=== PATIENT | female | born 1945 | race Caucasian/White ===

== ENCOUNTER 2021-02-12 04:53 | Emergency (ER) | payer OTHER ==
[~2021-02-12] VITALS: Ht 167.6 cm; Wt 67.1 kg
[2021-02-12 04:53] VITALS: BP 187/89
--- NOTE | 2021-02-12 04:53 | NUR ---
TO BED VIA WHEELCHAIR
--- NOTE | 2021-02-12 04:55 | NUR ---
TO BED 9 WITH C/O GW X 3 DAYS. C/O CHEST DISCOMFORT. IS AWAKE AND ALERT, SKIN WARM AND DRY. RESPIRATIONS ARE REGULAR AND UNLABORED PMH : CHOLESTEROL, HTN, DM NKDA
--- NOTE | 2021-02-12 05:15 | NUR ---
Dr. Salter examining patient.
--- NOTE | 2021-02-12 05:27 | NUR ---
X-Ray at bedside.
--- NOTE | 2021-02-12 05:30 | NUR ---
RSV, COVID, INF A & B SWABS OBTAINED AND SENT TO LAB
[2021-02-12 05:40] LABS: BASOPHILS # (AUTO) 0.1 K/uL (0.00-0.22); BASOPHILS % (AUTO) 0.9 % (0.0-2.0); EOSINOPHILS # (AUTO) 0.3 K/uL (0-0.4); EOSINOPHILS % (AUTO) 3.3 % (0.0-4.0); HEMATOCRIT 45.8 % (36-48); HEMOGLOBIN 15.5 g/dL (12.0-16.0); LYMPHOCYTES # (AUTO) 1.3 K/uL (2.5-16.5); LYMPHOCYTES % (AUTO) 14.7 % (20.5-51.1); MEAN CORPUSCULAR HEMOGLOBIN 31 pg (27-31); MEAN CORPUSCULAR HGB CONC 34 g/dL (33-37); MEAN CORPUSCULAR VOLUME 90.8 fL (80-94); MONOCYTES # (AUTO) 0.6 K/uL (0.8-1.0); MONOCYTES % (AUTO) 6.6 % (1.7-9.3); NEUTROPHILS # (AUTO) 6.8 K/uL (1.8-7.7); NEUTROPHILS % (AUTO) 74.5 % (42.2-75.2); PLATELET COUNT (AUTO) 179 K/uL (140-450); RED BLOOD CELL COUNT(AUTO) 5.05 MIL/uL (4.20-5.40); RED CELL DISTRIBUTION WIDTH 13.6 % (11.6-13.7); WHITE BLOOD COUNT (AUTO) 9.1 K/uL (4.8-10.8)
[2021-02-12 06:08] LABS: ALBUMIN 4.5 g/dL (3.4-5.0); ANION GAP 14.3 (8-16); ASPARTATE AMINOTRANSFERASE 19 U/L (15-37); CHLORIDE 105 mmol/L (98-107); CREATININE 1.2 mg/dL (0.6-1.3); GLUCOSE 138 mg/dL (74-106); POTASSIUM 3.3 mmol/L (3.5-5.1); RSV NEGATIVE (NEGATIVE); SODIUM SERUM 143 mmol/L (136-145); TOTAL BILIRUBIN 0.7 mg/dL (0.0-1.0); UREA NITROGEN, BLOOD 14 mg/dL (7-18)
[2021-02-12] MEDS ORDERED: POTASSIUM CHLORIDE 10 MEQ TABER PO ONE (06:25)
[2021-02-12 06:55] LABS: FREE T4 (FREE THYROXINE) 1.27 ng/dL (0.76-1.46); MAGNESIUM 2.1 mg/dL (1.8-2.4); PHOSPHORUS 2.7 mg/dL (2.5-4.9); THYROID STIMULATING HORMONE 1.02 uIU/mL (0.34-3.74)
--- NOTE | 2021-02-12 07:11 | NUR ---
RECEIVED REPORT FROM ISA JIM. TRANSFER OF CARE AT THIS TIME.
--- NOTE | 2021-02-12 07:22 | NUR ---
PATIENT AMBULATED TO RESTROOM FOR COLLECTION OF URINE
--- NOTE | 2021-02-12 07:28 | NUR ---
PT AMBULATED BACK TO BED 9 WITH ASSISTANCE. PT A/O X4 GCS 14 WITH EVEN AND UNLABORED RESPIRATIONS. PT STATES SHE IS FEELING A LITTLE BETTER. PT LAYING IN BED WITH BED IN LOWEST POSITION, BRAKES LOCKED X2 SIDERAILS UP FOR SAFETY. WILL CONTINUE TO MONITOR.
[2021-02-12 07:47] LABS: APPEARANCE,URINE CLEAR (CLEAR); BILIRUBIN,URINE NEGATIVE (NEGATIVE); BLOOD, URINE NEGATIVE (NEGATIVE); COLOR,URINE YELLOW (YELLOW); LEUKOCYTE ESTERASE ,URINE 1+ (NEGATIVE); NITRITE, URINE NEGATIVE (NEGATIVE); PH,URINE 7.5 (5.0-9.0); UGLUCOSE NEGATIVE (NEGATIVE)
[2021-02-12 07:51] LABS: RBC,URINE 0-5 /HPF (0-5); WBC,URINE 0-5 /HPF (0-5)
--- NOTE | 2021-02-12 08:03 | NUR ---
DR LAUGHLIN AT BEDSIDE RE-EVALUATING PATIENT
[2021-02-12] MEDS ORDERED: NITR100C7 PO (08:21)
[2021-02-12] MEDS ORDERED: ROB PO (08:21)
[2021-02-12 08:37] VITALS: BP 152/84
--- NOTE | 2021-02-12 08:40 | NUR ---
Patient discharged with v/s stable. Written and verbal after care instructions ABOUT UTI AND URI given and explained. Patient alert, oriented and verbalized understanding of instructions. Wheel Chair Assisted with to CAR . All questions addressed prior to discharge. ID band removed. Patient advised to follow up with PMD. Rx of MACROBID 100MG AND GUAIFENESIN given. Patient educated on indication of medication including possible reaction and side effects. Opportunity to ask questions provided and answered.
== END 2021-02-12 08:40 | disposition home or self-care (01) ==
LOC: MED 04:53
DX: R07.9 Chest pain, unspecified (principal); R05 Cough; R53.1 Weakness; E11.9 Type 2 diabetes mellitus without complications; E78.00 Pure hypercholesterolemia, unspecified; I10 Essential (primary) hypertension; Z20.822 Contact with and (suspected) exposure to COVID-19
CPT/HCPCS: 36415; 71045; 80053; 81001; 83690; 83735; 83880; 84100; 84439; 84443; 84484; 85025; 87086; 87420; 87804; 93005; 99285

== ENCOUNTER 2021-03-18 14:03 | Emergency (ER) | payer OTHER ==
[~2021-03-18] VITALS: Ht 157.5 cm; Wt 56.7 kg
[~2021-03-18 14:03] MED LIST: NITR100C7 PO; ROB PO
[2021-03-18 14:24] VITALS: BP 156/86
--- NOTE | 2021-03-18 14:55 | NUR ---
75/F bib self to ED with c/o dysuria and increased urinary frequency for 3 weeks. Patient states she was seen here for same symptoms and given Rx of Macrobid and Pyridium but has not experienced relief of symptoms. Patient also c/o 10/10 dull lower abdominal pain radiating to her lower back, patient states she took medication for pain with no relief. Patient denies fever, chills, nausea or vomiting. Pt denies chest pain or SOB.
[2021-03-18] MEDS ORDERED: KETOROLAC 60 MG/2 ML VIAL IM ONE (15:00)
[2021-03-18] MEDS ORDERED: CIPR500T4 PO (15:01)
[2021-03-18] MEDS ORDERED: IBUP-2213 PO (15:01)
[2021-03-18 15:19] VITALS: BP 156/86
--- NOTE | 2021-03-18 15:19 | NUR ---
Patient discharged with v/s stable. Written and verbal after care instructions given and explained. Patient alert, oriented and verbalized understanding of instructions. Ambulatory with steady gait. All questions addressed prior to discharge. ID band removed. Patient advised to follow up with PMD. Rx of ciprofloxacin and ibuprofen given. Patient educated on indication of medication including possible reaction and side effects. Opportunity to ask questions provided and answered.
== END 2021-03-18 15:19 | disposition home or self-care (01) ==
LOC: MED 14:03
DX: N39.0 Urinary tract infection, site not specified (principal); E11.9 Type 2 diabetes mellitus without complications; I10 Essential (primary) hypertension; Z79.899 Other long term (current) drug therapy; Z98.890 Other specified postprocedural states
CPT/HCPCS: 81002; 87086; 96372; 99283; J1885

== ENCOUNTER 2021-07-11 08:59 | Inpatient (IN) | payer OTHER, SELFPAY ==
[~2021-07-11] VITALS: Ht 167.6 cm; Wt 68.0 kg
[~2021-07-11 08:59] MED LIST changes: +CIPR500T4 PO; +IBUP-2213 PO
[2021-07-11 09:12] VITALS: BP 118/88
--- NOTE | 2021-07-11 09:20 | NUR ---
PATIENT AMBULATED TO BED 4
[2021-07-11] MEDS ORDERED: ACETAMINOPHEN EXTRA STRENGTH 500 MG TAB PO ONE (09:55)
[2021-07-11 10:12] LABS: BASOPHILS % (AUTO) 0.6 % (0.0-2.0); EOSINOPHILS # (AUTO) 0.1 K/uL (0-0.4); EOSINOPHILS % (AUTO) 1.2 % (0.0-4.0); HEMATOCRIT 43.6 % (36-48); HEMOGLOBIN 14.8 g/dL (12.0-16.0); LYMPHOCYTES # (AUTO) 0.9 K/uL (2.5-16.5); LYMPHOCYTES % (AUTO) 14.1 % (20.5-51.1); MEAN CORPUSCULAR HEMOGLOBIN 30 pg (27-31); MEAN CORPUSCULAR HGB CONC 34 g/dL (33-37); MEAN CORPUSCULAR VOLUME 88.4 fL (80-94); MONOCYTES # (AUTO) 0.7 K/uL (0.8-1.0); MONOCYTES % (AUTO) 10.2 % (1.7-9.3); NEUTROPHILS # (AUTO) 4.8 K/uL (1.8-7.7); NEUTROPHILS % (AUTO) 73.9 % (42.2-75.2); PLATELET COUNT (AUTO) 184 K/uL (140-450); RED BLOOD CELL COUNT(AUTO) 4.93 MIL/uL (4.20-5.40); RED CELL DISTRIBUTION WIDTH 13.3 % (11.6-13.7); WHITE BLOOD COUNT (AUTO) 6.5 K/uL (4.8-10.8)
[2021-07-11 10:27] LABS: PROTHROMBIN TIME 10.4 secs (10.8-13.4)
[2021-07-11 10:36] LABS: ALBUMIN 3.8 g/dL (3.4-5.0); ANION GAP 12.1 (8-16); ASPARTATE AMINOTRANSFERASE 16 U/L (15-37); CARBON DIOXIDE 27.8 mmol/L (21-32); CHLORIDE 102 mmol/L (98-107); CREATININE 1.1 mg/dL (0.6-1.3); GLUCOSE 129 mg/dL (74-106); POTASSIUM 3.9 mmol/L (3.5-5.1); SODIUM SERUM 138 mmol/L (136-145); TOTAL BILIRUBIN 0.4 mg/dL (0.0-1.0); UREA NITROGEN, BLOOD 13 mg/dL (7-18)
--- NOTE | 2021-07-11 10:40 | NUR ---
75/F PRESENTS TO ED WITH C/O LEFT SIDED CHEST PAIN AND SOB X5 DAYS. PATIENT STATES SHE FEELS EASILY FATIGUED WHEN TAKING A FEW STEPS AND CANNOT CATCH HER BREATH. PATIENT STATES PAIN HAS BEEN RADIATING TO HER RIGHT SHOULDER AND SHE HAS BEEN EXPERIENCING A "BURNING HEADACHE." PATIENT DENIES COUGH, FEVER, CHILLS, N/V/D OR DIZZINESS.
--- NOTE | 2021-07-11 12:07 | NUR ---
PATIENT TAKEN TO CT BY W/C
[2021-07-11] MEDS ORDERED: ASPIRIN 325 MG TAB PO ONE (12:40)
--- NOTE | 2021-07-11 14:00 | NUR ---
PATIENT PROVIDED WITH SANDWICH AND JUICE TO DRINK.
--- NOTE | 2021-07-11 15:35 | NUR ---
PATIENT RESTING IN BED, ON BEDSIDE CARDIOLOGY PHYSICIAN ASSISTANT VSS. ALL NEEDS MET AT THIS TIME.
--- NOTE | 2021-07-11 16:48 | NUR ---
Patient will be admitted to care of DR. BETTENCOURT. Admited to TELE. Will go to room 122B. Belongings list completed. Report to [place].
--- NOTE | 2021-07-11 17:40 | NUR ---
RECIEVE REPORT FROM CHARGE NURSE ANITA , PATIENT IS IN BED WAS ADMITTED DUE TO CHEST PAIN ON THE LEFT SIDE, DENIES PAIN AT THIS MOMENT, PATIENT HAS A HISTORY OF HTN, HYPERLIPIDEMIA AND PRE DIABETIC, PATIENT IS AX4 ON ROOM AIR, BREATHING EVEN UNLABORED, CALLS LIGHT WITHIN REACH, ALL SAFETY MEASURES ON PLACE Addendum: 07/11/21 at 1903 by Farooq Henriquez RN RN PATIENT BLOOD PRESSURE 175/[address] BETTENCOURT Addendum: 07/11/21 at 2008 by Farooq Henriquez RN RN PATIENT GOT ZESTRIL 10 MG, ENDORSED TO FUELER NURSE TO MONITOR BLOOD PRESSURE AND GIVE IV HYDRALAZINE S MD SG LOVE
[2021-07-11 18:30] VITALS: BP 175/89
[2021-07-11] MEDS ORDERED: MAG SULF 2000 MG/WATER PREMIX 50 ML IV PRN (18:55)
[2021-07-11] MEDS: lisinopriL 5 MG TAB PO SCH (18:55)
[2021-07-11] MEDS ORDERED: NITROGLYCERIN 0.4 MG TAB SL PRN (18:55)
[2021-07-11] MEDS ORDERED: POTASSIUM CHLORIDE 10 MEQ TABER PO PRN (18:55)
[2021-07-11 20:00] VITALS: BP 175/89
--- NOTE | 2021-07-11 20:09 | NUR ---
FULL BEDSIDE REPORT GIVEN TO DOMESTIC VIOLENCE COUNSELOR NURSE
[2021-07-11] MEDS: ATORVASTATIN 20 MG TAB PO SCH (21:00)
[2021-07-11] MEDS: METOPROLOL 25 MG TAB PO SCH (21:00)
[2021-07-12] VITALS: BP 169/87
--- NOTE | 2021-07-12 01:53 | NUR ---
PATIENT ALERT TAMAZIGHT SPEAKING LUNGS CLEAR ON MONITOR SINUS B/P HIGH GIVEN LOPRESSOR 25 MG PO ON ROOM AIR SINUS HAS RIGHT A.C 20 GA HL. NO SIGN OF ACUTE DISTRESS.
[2021-07-12 04:00] VITALS: BP 169/88
[2021-07-12 06:09] LABS: ANION GAP 10.9 (8-16); CHLORIDE 104 mmol/L (98-107); GLUCOSE 110 mg/dL (74-106); POTASSIUM 3.9 mmol/L (3.5-5.1); SODIUM SERUM 139 mmol/L (136-145); UREA NITROGEN, BLOOD 10 mg/dL (7-18)
[2021-07-12 06:23] LABS: MAGNESIUM 2.2 mg/dL (1.8-2.4); PHOSPHORUS 3.1 mg/dL (2.5-4.9)
[2021-07-12 06:27] LABS: BASOPHILS # (AUTO) 0.1 K/uL (0.00-0.22); BASOPHILS % (AUTO) 0.9 % (0.0-2.0); EOSINOPHILS # (AUTO) 0.2 K/uL (0-0.4); EOSINOPHILS % (AUTO) 3.5 % (0.0-4.0); HEMATOCRIT 42.8 % (36-48); HEMOGLOBIN 14.7 g/dL (12.0-16.0); LYMPHOCYTES # (AUTO) 2.2 K/uL (2.5-16.5); LYMPHOCYTES % (AUTO) 37.9 % (20.5-51.1); MEAN CORPUSCULAR HEMOGLOBIN 30 pg (27-31); MEAN CORPUSCULAR HGB CONC 34 g/dL (33-37); MEAN CORPUSCULAR VOLUME 88.4 fL (80-94); MONOCYTES # (AUTO) 0.5 K/uL (0.8-1.0); MONOCYTES % (AUTO) 8.3 % (1.7-9.3); NEUTROPHILS # (AUTO) 2.8 K/uL (1.8-7.7); NEUTROPHILS % (AUTO) 49.4 % (42.2-75.2); PLATELET COUNT (AUTO) 193 K/uL (140-450); RED BLOOD CELL COUNT(AUTO) 4.84 MIL/uL (4.20-5.40); RED CELL DISTRIBUTION WIDTH 13.1 % (11.6-13.7); WHITE BLOOD COUNT (AUTO) 5.7 K/uL (4.8-10.8)
[2021-07-12 08:00] VITALS: BP 182/83
--- NOTE | 2021-07-12 08:00 | NUR ---
RECEIVED REPORT FROM COMPLIANCE FIELD TECHNICIAN FOR CONTINUITY OF CARE. PATEINT ALERT AWAKE ORIENTED X4, POLISH SPEAKING, GRAND DAUGHTER AT BEDSIDE TO TRANSLATE. WITH HEPLOCK ON THE RIGHT AC DRY AND INTACT. ON MONITOR SHOWS SR. DENIES CHEST PAIN. NEEDS ATTENDED. WILL CONTINUE TO MONITOR.
[2021-07-12] MEDS: ASPIRIN 81 MG TAB.CHEW PO SCH (08:31)
[2021-07-12] MEDS: lisinopriL 5 MG TAB PO SCH (08:31)
[2021-07-12] MEDS: METOPROLOL 25 MG TAB PO SCH ×2 (08:31→20:43)
--- NOTE | 2021-07-12 09:00 | NUR ---
DUE MEDICATION GIVEN AND TOLERATED WELL.
--- NOTE | 2021-07-12 09:04 | NUR ---
PATIENT HAS BEEN SCREENED AND CATEGORIZED MODERATE NUTRITION RISK. PATIENT WILL BE SEEN WITHIN 3-5 DAYS OF ADMISSION. 07/12/21 07/16/[address]
[2021-07-12] MEDS ORDERED: LORazepam 2 MG/ML VIAL IM/IVP PRN (09:05)
[2021-07-12] MEDS ORDERED: ACETAMINOPHEN 325 MG TAB PO PRN (09:05)
[2021-07-12] MEDS ORDERED: POTASSIUM CHLORIDE 10 MEQ TABER PO PRN (09:05)
[2021-07-12] MEDS ORDERED: ZOLPIDEM 5 MG TAB PO PRN (09:05)
[2021-07-12] MEDS ORDERED: MAG SULF 2000 MG/WATER PREMIX 50 ML IV PRN (09:05)
[2021-07-12] MEDS ORDERED: ONDANSETRON 4 MG/2 ML VIAL IM/IVP PRN (09:05)
[2021-07-12] MEDS ORDERED: DOCUSATE SODIUM 100 MG GELCAP PO PRN (09:05)
[2021-07-12] MEDS: NACL 0.9% 1,000 ML IV SCH (10:28)
--- NOTE | 2021-07-12 10:30 | NUR ---
SEEN BY DR. DE LEON WITH ORDER FOR ECHO. STARTED ON IVF NS @ 60 ML/ HR AND INFUSING WELL. WILL CONTINUE TO MONITOR.
--- NOTE | 2021-07-12 11:00 | NUR ---
ECHO IN PROGRESS, PATIENT IN STABLE CONDITION.
[2021-07-12 11:01] LABS: PROTHROMBIN TIME 10.2 secs (10.8-13.4)
[2021-07-12 14:00] VITALS: BP 155/66
[2021-07-12 16:00] VITALS: BP 157/73
[2021-07-12] MEDS ORDERED: REGADENOSON 0.4 MG/5 ML SYR IV SCH (16:05)
--- NOTE | 2021-07-12 17:00 | NUR ---
PATIENT RESTING IN BED, DENIES CHEST PAIN.
--- NOTE | 2021-07-12 19:25 | NUR ---
REPORT GIVEN TO BANQUET WAITER/WAITRESS FOR CONTINUITY OF CARE. PATIENT IN STABLE CONDITION.
[2021-07-12 20:00] VITALS: BP 137/61
--- NOTE | 2021-07-12 20:00 | NUR ---
RECEIVED BEDSIDE REPORT EARLIER FROM DAY RN FOR CONTINUITY OF CARE. PATIENT A/A/OX3, HAITIAN SPEAKING BUT ABLE TO VERBALIZED NEEDS WITH SIMPLE TURKMEN. PATIENT LAYING IN BED WATCHING TV. PATIENT NOT IN ANY DISTRESS AND NO COMPLAIN AT THIS TIME. PATIENT DENIES ANY CHEST PAIN, DIZZINESS AND ANY PAIN. IVF INFUSING ORDERED ON THE RT AC. INSTRUCTED PATIENT THAT SHE CANNOT EAT OR DRINK ANYTHING AFTER MIDNIGHT FOR THE STRESS TEST TOMORROW.FALL PRECAUTION IMPLEMENTED. INSTRUCTED THE PATIENT NOT TO GET OOB WITHOUT ASSISTANCE. PT VERBALIZED UNDERSTANDING WITH THE POC.CALL LIGHT WITHIN REACH. WILL CONTINUE POC AND MONITORING.
[2021-07-12] MEDS: ATORVASTATIN 20 MG TAB PO SCH (20:43)
--- NOTE | 2021-07-12 22:00 | NUR ---
ALL DUE MEDS GIVEN ORDERED. NO ADVERSE DRUG REACTION NOTED. WILL CONTINUE TO OBSERVE PT.
[2021-07-13] VITALS (7 sets, daily range): BP systolic 132–182; BP diastolic 70–89
--- NOTE | 2021-07-13 | NUR ---
PT BP HIGH 178/89, HR-70, AFEBRILE, SATING 97% ON RA. PT WAS GIVEN LOPRESSOR EARLIER. WILL CONTINUE TO MONITOR THE PT BP AND IF STILL REMAINS HIGH WE WILL NOTIFY MD. ARCHER ON TELE MONITOR, HR-74. NO COMPLAIN OF PAIN. CALL LIGHT WITHIN REACH. WILL CONTINUE POC AND MONITORING.
[2021-07-13] MEDS: NACL 0.9% 1,000 ML IV SCH (01:45)
--- NOTE | 2021-07-13 01:51 | NUR ---
PATIENT IV ON THE RIGHT AC GOT PULLED OUT BY THE PATIENT ACCIDENTALLY. PLACED A NEW IV ON THE LEFT HAND GAUGE 22.
--- NOTE | 2021-07-13 03:30 | NUR ---
PATIENT ASLEEP AT THIS TIME. VISIBLE CHEST RISE AND FALL NOTED. NOT IN ANY DISTRESS. WILL CONTINUE TO OBSERVE.
--- NOTE | 2021-07-13 05:30 | NUR ---
MESSAGED DR MAYA REGARDING THE PATIENT BP HIGH 182/81, HR-56. MD ALSO MADE AWARE THAT THE PT IS GOING FOR STRESS TEST TODAY. AWAITING FOR MD TO REPLY OR CALL BACK.
--- NOTE | 2021-07-13 06:15 | NUR ---
NO ACUTE EVENT THROUGHOUT THE NIGHT. PATIENT STABLE. NOT IN ANY DISTRESS AND NO COMPLAIN AT THIS TIME. ALL NEEDS ATTENDED. WILL ENDORSE THE PATIENT TO THE ONCOMING RN FOR CONTINUITY OF CARE.
[2021-07-13 06:22] LABS: BASOPHILS # (AUTO) 0.1 K/uL (0.00-0.22); BASOPHILS % (AUTO) 0.8 % (0.0-2.0); EOSINOPHILS # (AUTO) 0.2 K/uL (0-0.4); EOSINOPHILS % (AUTO) 3.4 % (0.0-4.0); HEMATOCRIT 41.1 % (36-48); HEMOGLOBIN 13.9 g/dL (12.0-16.0); LYMPHOCYTES # (AUTO) 1.8 K/uL (2.5-16.5); LYMPHOCYTES % (AUTO) 28.1 % (20.5-51.1); MEAN CORPUSCULAR HEMOGLOBIN 30 pg (27-31); MEAN CORPUSCULAR HGB CONC 34 g/dL (33-37); MEAN CORPUSCULAR VOLUME 88.5 fL (80-94); MONOCYTES # (AUTO) 0.4 K/uL (0.8-1.0); MONOCYTES % (AUTO) 6.4 % (1.7-9.3); NEUTROPHILS % (AUTO) 61.3 % (42.2-75.2); PLATELET COUNT (AUTO) 195 K/uL (140-450); RED BLOOD CELL COUNT(AUTO) 4.64 MIL/uL (4.20-5.40); WHITE BLOOD COUNT (AUTO) 6.5 K/uL (4.8-10.8)
[2021-07-13 06:33] LABS: CHLORIDE 106 mmol/L (98-107); CREATININE 0.9 mg/dL (0.6-1.3); GLUCOSE 121 mg/dL (74-106); SODIUM SERUM 141 mmol/L (136-145); UREA NITROGEN, BLOOD 10 mg/dL (7-18)
[2021-07-13 06:36] LABS: CHOL/HDL RATIO 3.2 (1-4.5)
[2021-07-13 06:43] LABS: MAGNESIUM 2.2 mg/dL (1.8-2.4); PHOSPHORUS 2.9 mg/dL (2.5-4.9)
--- NOTE | 2021-07-13 07:46 | NUR ---
ENDORSED PATIENT TO DAY RN FOR CONTINUITY OF CARE. PATIENT STABLE. SIGNING OFF.
--- NOTE | 2021-07-13 07:50 | NUR ---
RECEIVED BEDSIDE REPORT FROM CHILI MAKER NURSE FOR CONTINUITY OF CARE. PT IS AT THE STRESS TEST AT THIS MOMENT. WILL WAIT FOR PT TO RETURN BACK TO ROOM.
--- NOTE | 2021-07-13 09:30 | NUR ---
PT ARRIVED BACK FROM [facility]. WILL WAIT FOR RESULTS. NO DISTRESS NOTED. PT DENIES PAIN. BREATHING IS UNLABORED ON RA. IV FLUIDS WERE CONNECTED TO IV. PT IS STABLE.
[2021-07-13] MEDS: ASPIRIN 81 MG TAB.CHEW PO SCH (09:48)
[2021-07-13] MEDS: lisinopriL 5 MG TAB PO SCH (09:49)
[2021-07-13] MEDS: METOPROLOL 25 MG TAB PO SCH (09:49)
--- NOTE | 2021-07-13 10:57 | NUR ---
MESSAGED DR. MAYA TO ASK IF WE CAN CHANGE THE DIET FROM NPO. SHE ORDERED CARDIAC DIET FOR LUNCH.
[2021-07-13 11:38] LABS: APPEARANCE,URINE CLEAR (CLEAR); BILIRUBIN,URINE NEGATIVE (NEGATIVE); BLOOD, URINE NEGATIVE (NEGATIVE); COLOR,URINE YELLOW (YELLOW); NITRITE, URINE NEGATIVE (NEGATIVE); PH,URINE 7.5 (5.0-9.0); UGLUCOSE NEGATIVE (NEGATIVE)
--- NOTE | 2021-07-13 11:40 | NUR ---
PT IS IN THE RESTROOM TAKING BED BATH. LINENS WERE CHANGED. PT AMBULATED INDEPENDENTLY WITH STEADY GAIT. PT IS STABLE AT THIS TIME.
[2021-07-13 12:45] LABS: LEUKOCYTE ESTERASE ,URINE 1+ (NEGATIVE); RBC,URINE 0-5 /HPF (0-5); WBC,URINE 0-5 /HPF (0-5)
[2021-07-13 13:03] LABS: BARBITURATE, URINE NEGATIVE ng/ml (NEG <=200); BENZODIAZEPINE, URINE NEGATIVE ng/mL (NEG <=200); CANNABINOID, URINE NEGATIVE ng/mL (NEG <=50); COCAINE, URINE NEGATIVE ng/mL (NEG <=300); OPIATE, URINE NEGATIVE ng/mL (NEG <=2000); PHENCYCLIDINE SCREEN,URINE NEGATIVE ng/mL (NEG <=25)
--- NOTE | 2021-07-13 13:14 | NUR ---
DC PLANNING: THE PATIENT ADMITTED FROM HOME WITH C/O LEFT SIDED CHEST PAIN AND EXERTIONAL DYSPNEA. H/O HTN, HYPERLIPIDEMIA AND PREDIABETES. BNP AND TROPONINS WNL'S, EKG WITHOUT ST WAVE CHANGES OR STEMI. CARDIOLOGY CONSULT ORDERED, ECHO DONE, NORMAL LVEF OF 60-65%, NST ORDERED AND DONE TODAY, LVEF 76%, NO ISCHEMI OR PRIOR MS NOTED ON STUDY, ON BETA BLOCKERS AND ANNA MARIE INHIBITORS, DC PLAN IS TO RETURN HOME WITH FAMILY WHEN CLINICALLY STABLE. Addendum: 07/14/21 at 0843 by Shanita Thompson CM DC PLANNING: SEAMUS SPOKE WITH THE PATIENT AND HER GRANDDAUGHTER AT BEDSIDE YESTERDAY TO DISCUSS DC PLANNING. SEAMUS CONFIRMED THE PATIENTS ADDRESS AND PHONE NUMBER, SHE LIVES IN A SECOND FLOOR APARTMENT WITH HER GRANDDAUGHTER AND 3 GRANDCHILDREN. SHE IS VERY ACTIVE AND WALKS EVERYDAY, IS INDEPENDENT IN ALL ACTIVITIES. NO DME OF HOME HEALTH, SHE SEES HER PCP GYPSY PERKINS REGULARLY FOR HTN AND DME OVERSIGHT AND MANAGEMENT. NO DC NEEDS, PATIENT DC'D TO HOME WITH FAMILY.
--- NOTE | 2021-07-13 13:30 | NUR ---
ROUNDED ON PT. SHE IS STABLE. NO DISTRESS NOTED. PT DENIES PAIN. SITTING UP IN BED WATCHING TV. IV FLUIDS ARE INFUSING PER ORDER. WILL CONTINUE TO MONITOR.
--- NOTE | 2021-07-13 16:10 | NUR ---
COMMAND AND CONTROL, FIDELIA, AT BEDSIDE SPEAKING WITH PT AND GRANDDAUGHTER. ALL QUESTIONS ANSWERED. PT IS STABLE AND SPEAKING APPROPRIATELY.
--- NOTE | 2021-07-13 16:30 | NUR ---
MESSAGED DR. MAYA TO INFORM HER THAT THE BP IS 162/76 AND THE HR IS 81. ASKED FOR MEDICATION TO LOWER BP. WILL WAIT FOR RESPONSE.
[2021-07-13] MEDS ORDERED: LISI5TAB24 PO (16:44)
[2021-07-13] MEDS ORDERED: ATOR20TA40 PO (16:44)
[2021-07-13] MEDS ORDERED: METO25TA PO (16:44)
[2021-07-13] MEDS ORDERED: NIFE-184 PO (16:44)
[2021-07-13] MEDS ORDERED: ASPI81CT95 PO (16:44)
[2021-07-13] MEDS ORDERED: METOPROLOL 5 MG/5 ML VIAL IVP SCH (16:50)
--- NOTE | 2021-07-13 18:00 | NUR ---
PT IS DISCHARGED FROM HOSPITAL. CHANGED INTO OWN CLOTHING. IV WAS REMOVED AND BLEEDING CONTROLLED. ID BAND WAS REMOVED. DISCHARGE INSTRUCTIONS WERE PROVIDED TO GRANDDAUGHTER AT BEDSIDE AND PT. PT VERBALIZED UNDERSTANDING. PAPERWORK WAS SIGNED. PT IS STABLE AT THIS TIME. VS ARE STABLE.
== END 2021-07-13 18:05 | disposition home or self-care (01) | DRG 311 ==
LOC: MED 08:59 → MTU 15:07
DX: I20.8 Other forms of angina pectoris (principal); I10 Essential (primary) hypertension; E78.5 Hyperlipidemia, unspecified; R73.03 Prediabetes; K21.9 Gastro-esophageal reflux disease without esophagitis; Z20.822 Contact with and (suspected) exposure to COVID-19; Z79.1 Long term (current) use of non-steroidal anti-inflammatories (NSAID); Z79.899 Other long term (current) drug therapy
CPT/HCPCS: 36415; 70450; 71045; 80048; 80053; 80305; 81001; 83036; 83690; 83735; 83880; 84100; 84134; 84443; 84484; 85025; 85610; 85730; 87086; 87804; 93005; 93017; 99285; A9500; A9502; J1644; J2405; J2785; J3490; Q0092

== ENCOUNTER 2021-12-28 16:53 | Emergency (ER) | payer OTHER ==
[~2021-12-28] VITALS: Ht 167.6 cm; Wt 66.7 kg
[~2021-12-28 16:53] MED LIST changes: +ASPI81CT95 PO; +ATOR20TA40 PO; -CIPR500T4 PO; -IBUP-2213 PO; +LISI5TAB24 PO; +METO25TA PO; +NIFE-184 PO; -NITR100C7 PO; -ROB PO
[2021-12-28 16:59] VITALS: BP 176/91
--- NOTE | 2021-12-28 17:02 | NUR ---
76 Y/O FEMALE BIB SELF C/O CONSTIPATION LAST BM 3 DAYS AGO. STATED THAT SHE TOOK BISACODYL SUPPOSITORY AT 1600H, NO BOWEL MOVEMENT NOTED, NOW WITH 8/10 PAIN IN THE RECTAL AREA. STATED THAT THEY FEEL A "BALL" IN THE AREA. DENIES ANY NAUSEA/VOMITING NKA PMH: HTN
--- NOTE | 2021-12-28 18:15 | NUR ---
DR PACE AT BEDSIDE FOR FURTHER EVAL
--- NOTE | 2021-12-28 18:25 | NUR ---
PT AMBULATED TO BATHROOM WITH STEADY GAIT
--- NOTE | 2021-12-28 18:43 | NUR ---
Rectal exam performed per DR PACE with MARIBETH MOSS FEMALE HORTICULTURE SUPERVISOR at bedside during procedure. Patient tolerated well.
--- NOTE | 2021-12-28 19:00 | NUR ---
RAD AT BEDSIDE
--- NOTE | 2021-12-28 19:22 | NUR ---
Pt report given to TUYET BARKER. Transfer of care at this time.
[2021-12-28] MEDS ORDERED: LIDO4CRE18 TP (19:48)
[2021-12-28] MEDS ORDERED: HYDR25SU91 RC (19:48)
[2021-12-28] MEDS ORDERED: DOCU-61 PO (19:48)
[2021-12-28 20:00] VITALS: BP 175/84
--- NOTE | 2021-12-28 20:00 | NUR ---
Patient discharged with v/s stable. Written and verbal after care instructions given and explained. Patient alert, oriented and verbalized understanding of instructions. Ambulatory with steady gait. All questions addressed prior to discharge. ID band removed. Patient advised to follow up with PMD. Rx of Docusate Sodium, Hydrocortisone Acetate, and Lidocaine given.
--- NOTE | 2021-12-28 20:02 | NUR ---
Chart checked and completed.
== END 2021-12-28 20:00 | disposition home or self-care (01) ==
LOC: MED 16:53
DX: K59.00 Constipation, unspecified (principal); I10 Essential (primary) hypertension; Z79.899 Other long term (current) drug therapy; Z79.82 Long term (current) use of aspirin
CPT/HCPCS: 74018; 99283